=== PATIENT | male | born 1985 | race Caucasian/White ===

== ENCOUNTER 2016-06-06 13:07 | Emergency (ER) | payer OTHER ==
[~2016-06-06] VITALS: Ht 170.2 cm; Wt 83.6 kg
[2016-06-06] MEDS ORDERED: PROVENTIL HFA6.7 GM IH (16:20)
[2016-06-06] MEDS ORDERED: NAPROSYN500 MG PO (16:20)
[2016-06-06] MEDS ORDERED: ROBITUSSIN NIG118 ML PO (16:20)
[2016-06-06] MEDS ORDERED: MUCUS ER600 MG PO (16:20)
[2016-06-06] MEDS ORDERED: TESSALON PERLE100 MG PO (16:20)
[2016-06-06 16:35] VITALS: BP 130/93
== END 2016-06-06 16:38 | disposition home or self-care (01) ==
LOC: EXP 13:07 → EME 13:07 → EXP 16:38
DX: J06.9 Acute upper respiratory infection, unspecified (principal); R11.10 Vomiting, unspecified; H75.83 Other specified disorders of middle ear and mastoid in diseases classified elsewhere, bilateral; F17.200 Nicotine dependence, unspecified, uncomplicated
CPT/HCPCS: 71020; 99281; 99284